=== PATIENT | female | born 1960 | race Caucasian/White ===

== ENCOUNTER 2024-03-17 08:55 | Outpatient (REF) | payer OTHER, SELFPAY ==
[2024-03-17 09:18] LABS: MANUAL DIFF FLAG NO
[2024-03-17 10:11] LABS: Basophils Percent Auto 0.7 % (0-2); Eosinophils Absolute Auto 0.1 X10*3/uL (0.0-0.4); Eosinophils Percent Auto 2.9 % (0-4); Hematocrit 42.4 % (37.0-47.0); Hemoglobin 13.7 g/dl (12.0-16.0); Imm Gran Abs Auto 0.01 X10*3/uL (0.00-0.03); Imm Gran Pct Auto 0.2 % (0.0-0.4); Lymphocytes Absolute Auto 1.6 X10*3/uL (1.2-4.9); Mean Corpuscular HGB Conc 32.3 g/dl (31.0-35.0); Mean Corpuscular Hemoglobin 27.8 pg (27.0-33.0); Mean Corpuscular Volume 86.2 fL (80.0-98.0); Mean Platelet Volume 9.7 fL (9.4-12.3); Monocytes Absolute Auto 0.3 X10*3/uL (0.1-1.2); Monocytes Percent Auto 8.3 % (2-11); Neutrophils Percent Auto 47.9 % (45-73); Platelet Count 272 X10*3/uL (160-400); Red Blood Count 4.92 X10*6/uL (4.20-5.50); Red Cell Distribution Width 13.4 % (11.0-16.0); White Blood Count 4.1 X10*3/uL (4.8-10.8)
[2024-03-17 11:14] LABS: Alanine Aminotransferase 11 U/L (0-31); Anion Gap 11 (12-20); Aspartate Amino Transferase 15 U/L (5-31); Blood Urea Nitrogen 17 mg/dL (9-16); Calcium 9.8 mg/dL (8.4-10.2); Carbon Dioxide 27 mmol/L (22-29); Chloride 108 mmol/L (96-108); Cholesterol 258 mg/dL (<200); Estimated Glomerular Filt Rate > 60; Glucose Random 91 mg/dL (60-115); HDL Cholesterol 61 mg/dL (>40); Potassium 4.5 mmol/L (3.3-5.1); Sodium 141 mmol/L (135-145)
[2024-03-17 11:32] LABS: TSH reflex Free T4 1.45 uIU/mL (0.32-4.0)
[2024-03-18 11:53] LABS: LDL Cholesterol Direct 153 mg/dL (<100)
== END 2024-03-17 08:56 | disposition home or self-care (01) ==
LOC: HO.LAB 08:55
PROVIDERS: PCP Family Medicine; Visit Provider Family Medicine
DX: Z00.00 Encounter for general adult medical examination without abnormal findings (principal); I10 Essential (primary) hypertension; E03.9 Hypothyroidism, unspecified
CPT/HCPCS: 36415; 80048; 82465; 83718; 83721; 84443; 84450; 84460; 85025

== ENCOUNTER 2024-08-06 09:09 | Outpatient (REF) | payer OTHER, SELFPAY | END 2024-08-06 09:10 | disposition home or self-care (01) | LOC: HO.MAMMO 09:09 | PROVIDERS: PCP Family Medicine; Visit Provider Family Medicine | DX: Z12.31 Encounter for screening mammogram for malignant neoplasm of breast (principal) | CPT/HCPCS: 77063; 77067 ==

== ENCOUNTER → 2024-08-06 09:30 | Outpatient (BNV) | payer OTHER, SELFPAY | PROVIDERS: PCP Family Medicine; Visit Provider Internal Medicine | DX: Z12.31 Encounter for screening mammogram for malignant neoplasm of breast (principal) | CPT/HCPCS: 77063; 77067 ==

== ENCOUNTER 2024-09-09 07:51 | Outpatient (AMB) | payer OTHER, SELFPAY ==
--- NOTE | 2024-09-09 08:07 | MHC.OFFVIS ---
Vital Signs 09/09/24 08:21 Height 5 ft 3 in Weight 170 lb BMI 30.1 BP 150/78 H Blood Pressure Location Rt brachial Position Sitting Pulse 66 Pulse Source Pulse Oximeter Pulse Oximetry (%) 97 Oxygen Delivery Method Room Air Intake Visit Reasons: [place] screening office consult Intake Note: NEW PATIENT for [place] screening Prior hx of colo/egd? 5 Years ago via [facility]. 2nd lifetime colo. Chief Complaint; No GI concerns on a regular basis per pt. 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 Apartment Hotel Manager Required: No Hydro Mechanic: Hydro Mechanic Present Accompanied by: Self / Same As Patient Allergies Penicillins Allergy (Intermediate, Verified 09/09/24 08:12) Rash latex Allergy (Mild, Verified 09/09/24 08:12) Rash adhesive Allergy (Unknown, Verified 09/09/24 08:12) Rash aspirin [From Talwin Compound] Allergy (Unknown, Verified 09/09/24 08:12) Unknown hydrochlorothiazide Allergy (Unknown, Verified 09/09/24 08:12) Unknown pentazocine [From Talwin Compound] Allergy (Unknown, Verified 09/09/24 08:12) Unknown ibuprofen [From Motrin] Adverse Reaction (Unknown, Verified 09/09/24 08:12) Unknown naproxen [From Aleve] Adverse Reaction (Unknown, Verified 09/09/24 08:12) Unknown HPI HPI [place] screening office consult: Details: 64 year old? female here today for pre colonoscopy screening.? Patient was sent to us by her PCP.? Last colonoscopy in June of 2018.? Patient denies any gastrointestinal symptoms in the past or at present.? Paternal grandmother had colon cancer. ? Denies history of difficulty with sedation or anesthesia in the past.? Negative for history of sleep apnea.? Denies any history of cardiac, renal, pulmonary, or hepatic disease.?? No history of infectious? diseases like hepatitis A, B, C, HIV or tuberculosis.? Patient is not on any anticoagulation [facility] Medical History Skin cancer Hypothyroid Surgical History History of hysterectomy (~2000) Family History Paternal Grandmother Colon cancer Social History Alcohol intake: current Comment: Socially Patient Tobacco Use Status: Former Tobacco user Years Smoked: Quit 1988 Use of substances other than those prescribed or required for medical reasons: No Review of Systems Const Denies weight gain and Denies weight loss ENT Reports no additional complaints, Denies dysphagia and Denies odynophagia Card Reports no additional complaints Resp Reports no additional complaints GI Denies abdominal pain, Denies belching, Denies melena, Reports bloating (Occasional), Denies change in bowel habits, Denies dysphagia, Denies excessive flatus, Denies dyspepsia, Denies heartburn, Denies diarrhea, Denies loose stools, Denies nausea, Denies odynophagia and Denies vomiting Musc Reports no additional complaints Neuro Reports no additional complaints Psych Reports no additional complaints Endo Reports no additional complaints Physical Exam Vital Signs: Last Vital Signs Pulse 66 09/09/24 08:21 BP 150/78 H 09/09/24 08:21 Pulse Ox 97 09/09/24 08:21 Oxygen Delivery Method Room Air 09/09/24 08:21 BMI result Body Mass Index 30.1 Const General: healthy appearing and no acute distress Nutritional Appearance: obese Orientation/consciousness: patient oriented x3 Resp Effort & Inspection: normal respiratory effort, able to speak in complete sentences, no tracheal deviation and symmetric chest movement Auscultation: clear to auscultation bilaterally Cardio Rate: regular rate GI Inspection: Yes normal to inspection, No distended and Yes obesity Palpation (GI): Soft to palpation, not firm, nontender and No hepatosplenomegaly present Auscultation: normal bowel sounds General: Yes no CVA tenderness Back/Spine/Pelvis Back: no CVA tenderness Skin General skin exam: elasticity normal, turgor normal and dry skin Neuro General: patient oriented x3 Psych Appearance: grossly normal Mental Status: mental status grossly normal Assessment & Plan Assessment & Plan (1) Screen for colon cancer: Code(s): Z12.11 - Encounter for screening for malignant neoplasm of colon Plan Patient denies any GI, cardiac or respiratory symptoms.? Denies any issues with anesthesia in the past.? Denies any history of sleep apnea.? No history infectious diseases in the past or present.? Not on any anticoagulation therapy.? Family history of colon cancer.? Patient denies melena, hematochezia, unintentional weight loss or ribbon like stools.? Discussed at length the pre-procedure,? prep, diet & medications as well as what to expect prior, during and after the procedure.?? Stressed the importance of good bowel prep.? Recommended the use of Vaseline or Calmoseptine OTC & baby wipes with bowel movements to promote comfort.? ?Patient verbalizes understanding and agrees to plan of care.? She was given the opportunity to ask questions and all questions answered.? We will see her after the procedure.? Medications: New bisacodyl (Dulcolax (bisacodyl)) take 4 tabs at noon the day before your colonoscopy 20 mg (4 x 5 mg) PO ONCE 4 tabs 0RF 1 day Z12.11 - Encounter for screening for malignant neoplasm of colon polyethylene glycol 3350 (Miralax) As directed by gastroenterology department at [facility] 238 grams PO ONCE 238 grams 0RF Z12.11 - Encounter for screening for malignant neoplasm of colon Coding Level of Care Code New Pt Level 3 (26710) Diagnoses Screen for colon cancer Z12.11 Time Spent (min) 40 Comment 30 minutes spent with patient and additional 10 minutes spent reviewing her records
[2024-09-09 08:21] VITALS: BP 150/78; PULSE 66; O2SAT 97; BMI 30.1
== END 2024-09-09 09:08 | disposition home or self-care (01) ==
PROVIDERS: PCP Family Medicine; Visit Provider Nurse Practitioner Family
DX: Z12.11 Encounter for screening for malignant neoplasm of colon (principal); Z01.818 Encounter for other preprocedural examination
CPT/HCPCS: S0285

== ENCOUNTER 2024-11-19 08:56 | Day surgery (SDC) | payer OTHER, SELFPAY ==
[2024-11-17 09:21] VITALS: BMI 30.1
--- NOTE | 2024-11-18 09:00 | HO.ANESPROP2 ---
Documented by User: Rosanna Magana NP 11/18/24 09:00 HPI - Anesthesia Eval Consult details Narrative: 64yo Colonoscopy PMFSH Past Medical History Medical History HTN (hypertension) Skin cancer Hypothyroid Family History Family History Paternal Grandmother Colon cancer Surgical History Surgical History History of hysterectomy (~1999) Social History Social History Alcohol intake: current Comment: Socially Patient Tobacco Use Status: Former Tobacco user Years Smoked: Quit 1988 Advance Directives: No Advance Directives Information Provided: Yes Meds Allergies Allergy/AdvReac Type Severity Reaction Status Date / Time Penicillins Allergy Intermediate Rash Verified 09/09/24 08:12 latex Allergy Mild Rash Verified 09/09/24 08:12 adhesive Allergy Unknown Rash Verified 09/09/24 08:12 aspirin Allergy Unknown Unknown Verified 09/09/24 08:12 [From Talwin Compound] hydrochlorothiazide Allergy Unknown Unknown Verified 09/09/24 08:12 pentazocine Allergy Unknown Unknown Verified 09/09/24 08:12 [From Talwin Compound] ibuprofen [From Motrin] AdvReac Unknown Unknown Verified 09/09/24 08:12 Home Medications ?Medication ?Instructions ?Recorded ?Confirmed ?Last Taken ?Type clobetasol 0.05 % topical cream 1 appl topical DAILY PRN 08/31/24 Unknown History fluocinolone 0.025 % topical cream 1 appl topical BID 08/31/24 Unknown History levothyroxine 88 mcg capsule 88 mcg PO DAILY 08/31/24 Unknown History lisinopril 10 mg tablet 10 mg PO DAILY 08/31/24 Unknown History Exam Height,Weight and Vital Signs: Height 5 ft 3 in Weight 77.111 kg Assessment and Plan Assessment Anesthesia Assessment: Chart Reviewed Documented by User: Yas Ye MD 11/19/24 10:27 HPI - Anesthesia Eval Consult details Narrative: 64yo female patient for Colonoscopy [facility] Past Medical History Medical History HTN (hypertension) Skin cancer Hypothyroid Family History Family History Paternal Grandmother Colon cancer Family history of problems with anesthesia: No Surgical History Surgical History History of hysterectomy (~1999) History of Problems with Anesthesia: No Social History Social History Alcohol intake: current Comment: Socially Patient Tobacco Use Status: Former Tobacco user Years Smoked: Quit 1988 Advance Directives: No Advance Directives Information Provided: Yes Meds Allergies Allergy/AdvReac Type Severity Reaction Status Date / Time Penicillins Allergy Intermediate Rash Verified 09/09/24 08:12 latex Allergy Mild Rash Verified 09/09/24 08:12 adhesive Allergy Unknown Rash Verified 09/09/24 08:12 aspirin Allergy Unknown Unknown Verified 09/09/24 08:12 [From Talwin Compound] hydrochlorothiazide Allergy Unknown Unknown Verified 09/09/24 08:12 pentazocine Allergy Unknown Unknown Verified 09/09/24 08:12 [From Talwin Compound] ibuprofen [From Motrin] AdvReac Unknown Unknown Verified 09/09/24 08:12 Home Medications ?Medication ?Instructions ?Recorded ?Confirmed ?Last Taken ?Type clobetasol 0.05 % topical cream 1 appl topical DAILY PRN 08/31/24 Unknown History fluocinolone 0.025 % topical cream 1 appl topical BID 08/31/24 Unknown History levothyroxine 88 mcg capsule 88 mcg PO DAILY 08/31/24 Unknown History lisinopril 10 mg tablet 10 mg PO DAILY 08/31/24 Unknown History Exam Height,Weight and Vital Signs: Height 5 ft 3 in Weight 77.111 kg Vital Signs Temp Pulse Resp BP Pulse Ox O2 Del Method 11/19/24 09:26 97.4 F 90 16 156/70 H 97 Room Air Narrative Narrative: Contact lenses in. Sleeps with them Airway Mallampati Class: II TM Dist: >3cm Neck ROM: Full Loose/Missing/Broken Teeth: Yes (Missing some wisdom teeth. Denies broken or loose teeth) Heart: RRR Lungs: CTAB Assessment and Plan Assessment Anesthesia Assessment: Anesthesia Plan Discussed and Chart Reviewed Final Anesthetic Review Family History of Problems with Anesthesia: No History of Problems with Anesthesia: No NPO: Yes ASA Class: II Final Preanesthetic Review: No Changes in Pt Med Stat, Meds/Allgs Chart Reviewed, Consent Obtained/Reviewed and Anes Risks/Benef Reviewed Patient Risk: Low Procedure Risk: Low Assessment/Block/Sedation in SS: Assess/Block/Sedation-SS Anesthetic Plan Anesthetic Plan: TIVA Disposition: Standard PACU
[2024-11-19 09:26] VITALS: BP 156/70; PULSE 90; RESP 16; TEMP 36.3; O2SAT 97
--- NOTE | 2024-11-19 09:39 | MHC.SHP ---
Pre-Procedural Eval Section A - 24 Hr Update-Section A only Date of Service: 11/19/24 Section B - Complete if H&P > 30 days Chief Complaint: Encounter for screening for malignant neoplasm of Details of Present Illness: Skin cancer Hypothyroid Surgical History History of hysterectomy (~1999) Present Medications: see Short Stay Collaborative assessment Allergies: Allergies Allergy/AdvReac Type Severity Reaction Status Date / Time Penicillins Allergy Intermediate Rash Verified 09/09/24 08:12 latex Allergy Mild Rash Verified 09/09/24 08:12 adhesive Allergy Unknown Rash Verified 09/09/24 08:12 aspirin Allergy Unknown Unknown Verified 09/09/24 08:12 [From Talwin Compound] hydrochlorothiazide Allergy Unknown Unknown Verified 09/09/24 08:12 pentazocine Allergy Unknown Unknown Verified 09/09/24 08:12 [From Talwin Compound] ibuprofen [From Motrin] AdvReac Unknown Unknown Verified 09/09/24 08:12 naproxen [From Aleve] AdvReac Unknown Unknown Verified 09/09/24 08:12 Review of Systems Review of Systems Comment: Ten point ROS negative Exam Exam Comment: Gen appear: No acute distress HEENT: no icterus Chest: No overt resp distress Abd: soft, nontender, nondistended Psych: Stable affect, answering questions appropriately Neuro: A/Ox3 noted to move all extremities spontaneously Ext: no peripheral edema Plan Diagnosis/Plan: Unchanged I have reviewed the history and physical and performed a pertinent physical examination on my patient. No changes have occurred unless specified. Time Spent With Patient Time: Total time managing care of this patient today ____ minutes.
--- NOTE | 2024-11-19 10:51 | P.OPN-COLO_ITS ---
Colonoscopy Operative Note Operative Note Date of Service: 11/19/24 Narrative: Procedure: Colonoscopy Indication: Screening Endoscopist: Alicja Watts MD Anesthesia Provider: Dr Yas Ye Anesthesia type: MAC Instrument: Olympus [id number]-[id number] Consent: Indication, risks vs benefits, and alternatives were discussed with the patient who gave written informed consent to proceed. EKG, pulse, pulse oximetry and blood pressure were monitored throughout the procedure. Please see anesthesia flowsheet. Procedure: The patient was brought to the procedure room and placed in the left lateral decubitus position. IV medications were administered by the anesthesia provider in attendance. A digital rectal exam was performed which was normal. A distal attachment cap was affixed to the tip of the colonoscope which was then inserted through the anus and advanced through the colon to the cecum at 75 cm,and terminal ileum. Appendiceal orifice and ileocecal valve were identified. Mucosa was carefully examined under high definition white light as the instrument was slowly withdrawn in a retrograde panoramic fashion. Retroflexion was performed in rectum. The procedure was not difficult. There were no immediate obvious complications. The quality of the prep was BBPS: 3+2+3 = adequate Withdrawal time 8 minutes. Limitations: No limitations. Findings: Mucosa: Normal to cecum and terminal ileum. Protruding lesions: * Medium internal hemorrhoids without stigmata of recent bleeding. Excavated lesions: * Mild to moderate diverticulosis of sigmoid colon. Impression: 1. Normal colon mucosa 2. Diverticulosis 3. Internal hemorrhoids Recommendations: - Repeat colonoscopy for asymptomatic colorectal cancer screening recommended in 10 years.
[2024-11-19 10:56] VITALS: BP 104/63; PULSE 66; RESP 21; TEMP 36.6; O2SAT 98
[2024-11-19 11:11] VITALS: BP 133/82; PULSE 59; RESP 18; TEMP 36.3; O2SAT 98
== END 2024-11-19 12:12 | disposition home or self-care (01) ==
PROVIDERS: PCP Family Medicine; Visit Provider Internal Medicine
PROC: 0DJD8ZZ Inspection of Lower Intestinal Tract, Via Natural or Artificial Opening Endoscopic (ICD-10-PCS; CPT 45378; principal; 2024-11-19 10:40)
DX: Z12.11 Encounter for screening for malignant neoplasm of colon (principal); K57.32 Diverticulitis of large intestine without perforation or abscess without bleeding; K64.8 Other hemorrhoids; I10 Essential (primary) hypertension; E03.9 Hypothyroidism, unspecified; Z87.891 Personal history of nicotine dependence
CPT/HCPCS: 45378; J2003; J2704

== ENCOUNTER → 2024-11-19 08:56 | Outpatient (BNV) | payer OTHER, SELFPAY | PROVIDERS: PCP Family Medicine; Visit Provider Internal Medicine | DX: Z12.11 Encounter for screening for malignant neoplasm of colon (principal); K64.8 Other hemorrhoids; K57.30 Diverticulosis of large intestine without perforation or abscess without bleeding | CPT/HCPCS: 45378 ==